=== PATIENT | female | born 1945 | race Caucasian/White ===

== ENCOUNTER 2017-10-21 15:46 | Inpatient (IN) | payer MEDICARE, OTHER ==
[2017-10-21 16:17] LABS: % BASOPHILS 0.9 % (0.0-2.0); % EOSINOPHILS 1.1 % (0.0-5.0); % LYMPHOCYTES 18.6 % (20.0-50.0); % MONOCYTES 6.3 % (2.0-10.0); % NEUTROPHILS 73.1 % (40.0-80.0); BASOPHILE ABSOLUTE 0.1 Th/cumm (0-0.2); EOSINOPHILE ABSOLUTE 0.1 Th/cmm (0.1-0.4); HEMATOCRIT 40.5 % (41.0-60); HEMOGLOBIN 13.2 gm/dL (12-16); LYMPHOCYTE ABSOLUTE 1.6 Th/cmm (1.5-3.0); MEAN CELL VOLUME 89.5 fl (81-100); MEAN CORPUSCULAR HEMOGLOBIN 29.2 pg (27.0-31.0); MEAN CORPUSCULAR HGB CONC 32.6 pg (28.0-36.0); MEAN PLATELET VOLUME 9.2 fl; MONOCYTE ABSOLUTE 0.5 Th/cmm (0.3-1.0); NEUTROPHILE ABSOLUTE 6.1 Th/cmm (1.8-8.0); PLATELET COUNT 297 Th/cmm (150-400); RED BLOOD COUNT 4.52 Mil/cmm (3.80-5.20); WHITE BLOOD COUNT 8.4 Th/cmm (4.8-10.8)
[2017-10-21 16:51] LABS: ACETAMINOPHEN < 10.0 ug/mL (10.0-30.0); ALB/GLOB RATIO 1.2 (1.0-1.8); ALBUMIN 3.8 gm/dL (3.7-5.3); ALKALINE PHOSPHATASE 80 U/L (34-104); BILIRUBIN,TOTAL 0.2 mg/dL (0.3-1.0); BUN - UREA NITROGEN 14 mg/dL (7-25); CALCIUM SERUM 9.6 mg/dL (8.6-10.3); CARBON DIOXIDE 31.4 mEq/L (21.0-31.0); CHLORIDE 98 mEq/L (98-107); CHOLESTEROL 225 mg/dL (<200); CREATININE - SERUM 0.7 mg/dL (0.6-1.2); GLUCOSE 90 mg/dL (70-105); HDL -HIGH DENSITY LIPOPROTEIN 49 mg/dL (23-92); POTASSIUM SERUM 4.4 mEq/L (3.5-5.1); SGOT 11 U/L (13-39); SGPT/ALT < 3 U/L (7-52); SODIUM SERUM 136 mEq/L (136-145); TOTAL PROTEIN,SERUM 6.9 gm/dL (6.0-8.3); TRIGLYCERIDES 312 mg/dL (<150)
[2017-10-21 17:06] LABS: SALICYLATES (ASPIRIN) < 25.0 mg/L (30.0-100.0)
--- NOTE | 2017-10-21 17:24 | ED Physician Chart ---
ED Chief Complaint/HPI - Patient Information Date Seen:: 10/21/17 Time Seen:: 15:45 Chief Complaint:: Agitation History of Present Illness:: onset x 2 days of agitation and hostile behavior; no report of trauma, H/As, S/T , neck pain, C/P, SOB, Abd. Pain, A/N/V/D/C, fever, chills, SIs, or urinary s/s Allergies:: Allergies Allergy/AdvReac Type Severity Reaction Status Date / Time darnell Allergy Verified 10/21/17 16:06 olanzapine [From Zyprexa] Allergy Verified 10/21/17 16:06 orange Allergy Verified 10/21/17 16:06 Sulfa (Sulfonamide Allergy Verified 10/21/17 16:06 Antibiotics) thioridazine [From Mellaril] Allergy Verified 10/21/17 16:06 Vitals:: Vital Signs - 8 hr 10/21/17 15:46 Temp 97.8 F HR 77 RR 16 BP 138/73 O2 Sat % 94 Historian:: Patient Review:: Nurse's Note Reviewed ED Review of Systems - Review of Systems General/Constitutional: No fever, No chills, No weight loss, No weakness, No diaphoresis, No edema, No loss of appetite Skin: No skin lesions, No rash, No bruising Head: No headache, No light-headedness Eyes: No loss of vision, No pain, No diplopia ENT: No earache, No nasal drainage, No sore throat, No tinnitus Neck: No neck pain, No swelling, No thyromegaly, No stiffness, No mass noted Cardio Vascular: No chest pain, No palpitations, No PND, No orthopnea, No edema Pulmonary: No SOB, No cough, No sputum, No wheezing GI: No nausea, No vomiting, No diarrhea, No pain, No melena, No hematochezia, No constipation, No hematemesis G/U: No dysuria, No frequency, No hematuria, No nacturia Billet Worker: No vaginal discharge, No abnormal vaginal bleed, No contraction Musculoskeletal: No bone or joint pain, No back pain, No muscle pain Endocrine: No polyuria, No polydipsia Psychiatric: No prior psych history, No depression, No anxiety, No suicidal ideation, No homicidal ideation, No auditory hallucination, No visual hallucination Hematopoietic: No bruising, No lymphadenopathy Allergic/Immuno: No urticaria, No angioedema Neurological: No syncope, No focal symptoms, No weakness, No paresthesia, No headache, No seizure, No dizziness, No confusion, No vertigo ED Past Medical History - Past Medical History Obtainable: Yes Past Medical History: HTN Family History: HTN Social History: Non Smoker, No Alcohol, No Drug Use, Single, Care Facility Surgical History: None Psychiatricy History: Schizophrenia, Bipolar Medication: Reviewed ED Physical Exam - Physical Examination General/Constitutional: Awake, Well-developed, well-nourished, Alert, No distress, GCS 15, Non-toxic appearing, Ambulatory Head: Atraumatic Eyes: Lids, conjuctiva normal, PERRL, EOMI Skin: Nl inspection, No rash, No skin lesions, No ecchymosis, Well hydrated, No lymphadenopathy ENMT: External ears, nose nl, TM canals nl, Nasal exam nl, Lips, teeth, gums nl , Oropharynx nl, Tonsils nl Neck: Nontender, Full ROM w/o pain, No JVD, No nuchal rigidity, No bruit, No mass, No stridor Respiratory: Nl effort/Exclusion, Clear to Auscultation, No Wheeze/Rhonchi/Rales Cardio Vascular: RRR, No murmur, gallop, rubs, NL S1 S2, Carotid/Femoral/Distal pulses equal bilaterally GI: No tenderness/rebounding/guarding, No organomegaly, No hernia, Normal BS's, Nondistended, No mass/bruits, No McBurney tenderness : No CVA tenderness Extremities: No tenderness or effusion, Full ROM, normal strength in all extremities, No edema, Normal digits & nails Neuro/Psych: Alert/oriented, DTR's symmetric, Normal sensory exam, Normal motor strength, Judgement/insight normal, Mood normal, Normal gait, No focal deficits Other Neuro/Psych comments:: + Psychomotor Agitation; no SIs; Mood/Affect; Stable Misc: Normal back, No paraspinal tenderness ED Labs/Radiology/EKG Results - Lab Results Results: Laboratory Tests 10/21/17 10/21/17 16:05 16:05 WBC 8.4 RBC 4.52 Hgb 13.2 Hct 40.5 L MCV 89.5 MCH 29.2 MCHC Differential 32.6 RDW 13.0 Plt Count 297 MPV 9.2 Neutrophils % 73.1 Lymphocytes % 18.6 L Monocytes % 6.3 Eosinophils % 1.1 Basophils % 0.9 Sodium 136 Potassium 4.4 Chloride 98 Carbon Dioxide 31.4 H Anion Gap 11.0 BUN 14 Creatinine 0.7 Est GFR ( Amer) TNP Est GFR (Non-Af Amer) TNP BUN/Creatinine Ratio 20.0 Glucose 90 Calcium 9.6 Total Bilirubin 0.2 L AST 11 L ALT < 3 L Alkaline Phosphatase 80 Total Protein 6.9 Albumin 3.8 Globulin 3.1 Albumin/Globulin Ratio 1.2 Triglycerides 312 H Cholesterol 225 H LDL Cholesterol Direct 142 HDL Cholesterol 49 Salicylates < 25.0 L Acetaminophen < 10.0 L Ethyl Alcohol < 10 Comments:: unremarkable - EKG Interpretations EKG Time:: 16:19 Rate & Rhythm: 73; NSR Comments:: non-specific st-t changes ED Septic Shock - . Is Septic Shock (SBP<90, OR Lactate>4 mmol\L) present?: No - <6hrs of presentation: Vital Signs: Vital Signs - 8 hr 10/21/ 15:46 Temp 97.8 F HR 77 RR 16 BP 138/73 O2 Sat % 94 ED Reassessment (Disposition) - Reassessment Reassessment Condition:: Improved - Diagnosis Diagnosis:: Agitation; Psychosis; Bipolar Disorder; Medical Clearance - Aftercare/Follow up Instructions Aftercare/Follow-Up Instructions:: Counseled pt regarding lab results/diagnosis & need follow up, Counseled pt & family regarding lab results/diagnosis & need follow up - Patient Disposition Discharge/Transfer:: Acute Care w/in this hosp Admitted to:: [facility] Condition at Disposition:: Stable, Improved ED Discharge Plan - Patient Disposition Instructions: Psychosis
[2017-10-21] MEDS ORDERED: Magnesium Hydroxide (MOM) 30 mL UDC PO PRN (18:02)
[2017-10-21 20:11] VITALS: BP 130/71
[2017-10-21] MEDS: Ferrous Sulfate 325 MG TAB PO SCH (21:04)
[2017-10-21] MEDS ORDERED: Magnesium Hydroxide (MOM) 30 mL UDC PO SCH (21:45)
[2017-10-22] MEDS ORDERED: Aspirin 81mg Chewable Tab PO SCH (09:00)
[2017-10-22] MEDS ORDERED: Pantoprazole 40 mg EC Tab PO SCH (09:00)
[2017-10-22] MEDS: Levothyroxine 0.075 Mg Tab PO SCH (09:00)
[2017-10-22] MEDS ORDERED: Levothyroxine 0.025 Mg Tab PO SCH (09:00)
[2017-10-22] MEDS ORDERED: Multivitamin w/ Minerals Tab PO SCH (09:00)
[2017-10-22] MEDS ORDERED: Oxybutynin Chloride 5 mg ER Tab PO SCH (09:00)
[2017-10-22] MEDS ORDERED: Ferrous Sulfate 325 MG TAB PO SCH (09:00)
[2017-10-22] MEDS: Ferrous Sulfate 325 MG TAB PO SCH ×3 (09:04→20:32)
[2017-10-22] MEDS: Multivitamin Tab PO SCH (09:05)
[2017-10-22] MEDS: Oxybutynin Chloride 5 mg ER Tab PO SCH (09:05)
[2017-10-22] MEDS: Aspirin 81mg Chewable Tab PO SCH (09:05)
[2017-10-22] MEDS: Pantoprazole 40 mg EC Tab PO SCH (09:05)
[2017-10-22 18:58] LABS: A1C % 6.3 % (4.0-6.0)
--- NOTE | 2017-10-23 02:37 | Psychosocial Evaluation ---
DATE OF SERVICE: 10/22/2017 IDENTIFYING DATA: The patient is a 72-year-old woman admitted here from [facility]. JUSTIFICATION OF HOSPITALIZATION: The patient is admitted here on a voluntary basis in view of her acute psychosis and agitation. CHIEF COMPLAINT: "I don't know, I want to go to hospice." HISTORY OF PRESENT ILLNESS: This is the first psychiatric hospitalization to the [facility] for this patient who is reported to have been agitated and verbally abusive and has been very disruptive. The patient could not be contained at a lower level of care and hence the patient has been transferred over here. I tried to interview the patient. The patient has been screaming and yelling and showing me the details about the hospice that she wanted to go there. Prior to the hospitalization, the patient is reported to have been having difficult time to cope with the stress. Review of the chart indicated that the patient has been on Clozaril and the patient is also reported to be on Depakote. The patient's compliance with the medication is noted to be questionable. The patient at this time has been going on a tangent and is not able to provide much of information. PAST PSYCHIATRIC HISTORY: Details are not known. MEDICAL HISTORY: Physical examination is requested and done by Dr. White and patient has reported to have COPD, osteoarthritis, anemia, Parkinson's disease, essential hypertension, hypothyroidism and type 2 diabetes mellitus. ALLERGIES: No allergies to any medications are reported at this time. SUBSTANCE ABUSE HISTORY: None. PHYSICAL OR SEXUAL ABUSE HISTORY: None. LEGAL PROBLEMS: None at this time. STRENGTH AND ASSETS: The patient is motivated. MENTAL STATUS EXAMINATION: The patient is a 72-year-old woman looking her stated age, superficially cooperative. Eye contact is poor. Mood is noted to be irritable. Affect is constricted. Insight and judgment at this time are noted to be impaired. Impulse control is noted to be poor. Coping skills are noted to be poor. The patient has not been able to contract for safety at this time. The patient is getting agitated. The patient at this time is not willing to contract for safety and has been going on a tangent and showing me the information on the hospice and is stating that she wants to go there. DIAGNOSTIC IMPRESSION: AXIS I: Schizophrenia, chronic paranoid type. AXIS II: None. AXIS III: As per Dr. Christopher. IMMEDIATE TREATMENT PLAN: The patient is going to be closely monitored, provided with supportive psychotherapy. The patient is going to be evaluated and continued with the current psychotropic medications. ESTIMATED LENGTH OF STAY: Three to five days. DISCHARGE CRITERIA: When she no longer is a threat to self or others and be able to cope up with the stress. [facility]# [id number]
[2017-10-23] MEDS: Aspirin 81mg Chewable Tab PO SCH (08:35)
[2017-10-23] MEDS: Ferrous Sulfate 325 MG TAB PO SCH ×3 (08:35→20:40)
[2017-10-23] MEDS: Levothyroxine 0.075 Mg Tab PO SCH (08:36)
[2017-10-23] MEDS: Oxybutynin Chloride 5 mg ER Tab PO SCH (11:15)
[2017-10-23] MEDS: Multivitamin Tab PO SCH (11:15)
[2017-10-23] MEDS: Pantoprazole 40 mg EC Tab PO SCH (11:15)
--- NOTE | 2017-10-23 18:29 | General Progress Note ---
Objective - Results Result Diagrams: 10/21/17 16:05 10/21/17 16:05 Recent Labs: Laboratory Last Values WBC 8.4 Th/cmm (4.8-10.8) 10/21/17 16:05 RBC 4.52 Mil/cmm (3.80-5.20) 10/21/17 16:05 Hgb 13.2 gm/dL (12-16) 10/21/17 16:05 Hct 40.5 % (41.0-60) L 10/21/17 16:05 MCV 89.5 fl (81-100) 10/21/17 16:05 MCH 29.2 pg (27.0-31.0) 10/21/17 16:05 MCHC Differential 32.6 pg (28.0-36.0) 10/21/17 16:05 RDW 13.0 % (11.5-20.0) 10/21/17 16:05 Plt Count 297 Th/cmm (150-400) 10/21/17 16:05 MPV 9.2 fl 10/21/17 16:05 Neutrophils % 73.1 % (40.0-80.0) 10/21/17 16:05 Lymphocytes % 18.6 % (20.0-50.0) L 10/21/17 16:05 Monocytes % 6.3 % (2.0-10.0) 10/21/17 16:05 Eosinophils % 1.1 % (0.0-5.0) 10/21/17 16:05 Basophils % 0.9 % (0.0-2.0) 10/21/17 16:05 Sodium 136 mEq/L (136-145) 10/21/17 16:05 Potassium 4.4 mEq/L (3.5-5.1) 10/21/17 16:05 Chloride 98 mEq/L (98-107) 10/21/17 16:05 Carbon Dioxide 31.4 mEq/L (21.0-31.0) H 10/21/17 16:05 Anion Gap 11.0 (7.0-16.0) 10/21/17 16:05 BUN 14 mg/dL (7-25) 10/21/17 16:05 Creatinine 0.7 mg/dL (0.6-1.2) 10/21/17 16:05 Est GFR ( Amer) TNP 10/21/17 16:05 Est GFR (Non-Af Amer) TNP 10/21/17 16:05 BUN/Creatinine Ratio 20.0 10/21/17 16:05 Glucose 90 mg/dL (70-105) 10/21/17 16:05 Hemoglobin A1c % 6.3 % (4.0-6.0) H 10/21/17 16:05 Calcium 9.6 mg/dL (8.6-10.3) 10/21/17 16:05 Total Bilirubin 0.2 mg/dL (0.3-1.0) L 10/21/17 16:05 AST 11 U/L (13-39) L 10/21/17 16:05 ALT < 3 U/L (7-52) L 10/21/17 16:05 Alkaline Phosphatase 80 U/L (34-104) 10/21/17 16:05 Total Protein 6.9 gm/dL (6.0-8.3) 10/21/17 16:05 Albumin 3.8 gm/dL (3.7-5.3) 10/21/17 16:05 Globulin 3.1 gm/dL 10/21/17 16:05 Albumin/Globulin Ratio 1.2 (1.0-1.8) 10/21/17 16:05 Triglycerides 312 mg/dL (<150) H 10/21/17 16:05 Cholesterol 225 mg/dL (<200) H 10/21/17 16:05 LDL Cholesterol Direct 142 mg/dL (75-193) 10/21/17 16:05 HDL Cholesterol 49 mg/dL (23-92) 10/21/17 16:05 TSH 1.54 uIU/ml (0.34-5.60) 10/21/17 16:05 Salicylates < 25.0 mg/L (30.0-100.0) L 10/21/17 16:05 Acetaminophen < 10.0 ug/mL (10.0-30.0) L 10/21/17 16:05 Ethyl Alcohol < 10 mg/dL (0-10) 10/21/17 16:05 RPR NONREACTIVE (NONREACTIVE) 10/21/17 16:05 - Physical Exam Vitals and I&O: Vital Signs Temp 98.2 F 10/23/17 07:20 Pulse 82 10/23/17 07:20 Resp 20 10/23/17 07:20 BP 129/76 10/23/17 07:20 Pulse Ox 95 10/23/17 07:20 Intake & Output 10/22/17 10/23/17 10/23/17 18:59 06:59 18:59 Intake Total 480 240 Balance 480 240 Intake: Oral 480 240 Other: # Voids 2 2 Active Medications: Current Medications Acetaminophen (Tylenol) 650 mg PO Q4HR PRN PRN Reason: mild pain Stop: 12/20/17 21:37 Ascorbic Acid (Vitamin C) 500 mg PO DAILY LESLEE Stop: 12/21/17 08:59 Last Admin: 10/23/17 08:36 Dose: 500 mg Aspirin (Aspirin Chewable) 81 mg PO DAILY LESLEE Stop: 12/21/17 08:59 Last Admin: 10/23/17 08:35 Dose: 81 mg Carbidopa/Levodopa (Sinemet 25mg-100 Mg) 1 tab PO DAILY LESLEE Stop: 12/21/17 08:59 Last Admin: 10/23/17 11:16 Dose: 1 tab Clozapine (Clozaril) 100 mg PO HS LESLEE PRN Reason: Protocol Stop: 12/20/17 20:59 Last Admin: 10/22/17 20:32 Dose: 100 mg Clozapine (Clozaril) 25 mg PO DAILY LESLEE PRN Reason: Protocol Stop: 12/21/17 08:59 Last Admin: 10/23/17 08:34 Dose: 25 mg Divalproex Sodium (Depakote Dr) 500 mg PO DAILY LESLEE PRN Reason: Protocol Stop: 12/21/17 08:59 Last Admin: 10/23/17 11:15 Dose: 500 mg Docusate Sodium (Colace) 100 mg PO BID LESLEE Stop: 12/21/17 08:59 Last Admin: 10/23/17 17:13 Dose: 100 mg Ferrous Sulfate (Iron) 325 mg PO TID LESLEE Stop: 12/20/17 20:59 Last Admin: 10/23/17 13:13 Dose: 325 mg Levothyroxine Sodium (Synthroid) 0.15 mg PO QDAC LESLEE Stop: 12/21/17 07:29 Last Admin: 10/23/17 08:36 Dose: 0.15 mg Lorazepam (Ativan) 0.5 mg PO Q4HR PRN; Protocol PRN Reason: Agitation Stop: 11/20/17 19:49 Magnesium Hydroxide (Milk Of Magnesia) 30 ml PO HS PRN PRN Reason: Constipation Stop: 12/20/17 18:01 Magnesium Hydroxide (Milk Of Magnesia) 30 ml PO Q72H LESLEE Stop: 12/20/17 21:44 Multivitamins/Vitamin C (Theragran) 1 tab PO DAILY LESLEE Stop: 12/21/17 08:59 Last Admin: 10/23/17 11:15 Dose: 1 tab Oxybutynin Chloride (Ditropan Xl) 5 mg PO DAILY LESLEE Stop: 12/21/17 08:59 Last Admin: 10/23/17 11:15 Dose: 5 mg Pantoprazole Sodium (Protonix) 40 mg PO DAILY LESLEE Stop: 12/21/17 08:59 Last Admin: 10/23/17 11:15 Dose: 40 mg Tramadol HCl (Ultram) 50 mg PO Q6HR PRN PRN Reason: PAIN Stop: 12/20/17 18:09 Trazodone HCl (Desyrel) 50 mg PO HS LESLEE PRN Reason: Protocol Stop: 12/20/17 20:59 Last Admin: 10/22/17 20:32 Dose: 50 mg Zolpidem Tartrate (Ambien) 5 mg PO HS PRN PRN Reason: Insomnia Stop: 12/20/17 19:49 - Procedures Procedures: Procedures Procedure Code Date INDIVID PSYCHOTHERAP NEC 94.39 06/18/04 OTHER GROUP THERAPY 94.44 06/18/04 RECREATIONAL THERAPY 93.81 06/18/04
--- NOTE | 2017-10-24 00:43 | Progress Notes ---
DATE: 10/23/2017 SUBJECTIVE: Staff was spoken to. The patient is interviewed. Mood is noted to be irritable. Affect is constricted. The patient is going on a tangent and has no insight into her illness. Insight and judgment are noted to be very much impaired. Impulse control seems to be poor. The patient is currently on Clozaril 100 mg at bedtime and 25 mg in the morning and is also getting the valproic acid 500 mg in the morning. The patient with these medications is being closely monitored. The patient's mood swings are still a problem and she is not able to contract for safety. ASSESSMENT: The patient is still psychotic and impulsive. PLAN: To continue the patient with the supportive therapy. I encouraged the patient to verbalize the concerns rather than to act out. [facility]# [id number]
[2017-10-24] MEDS: Levothyroxine 0.075 Mg Tab PO SCH (06:31)
[2017-10-24] MEDS: Multivitamin Tab PO SCH (09:47)
[2017-10-24] MEDS: Oxybutynin Chloride 5 mg ER Tab PO SCH (09:47)
[2017-10-24] MEDS: Pantoprazole 40 mg EC Tab PO SCH (09:47)
[2017-10-24] MEDS: Ferrous Sulfate 325 MG TAB PO SCH ×3 (09:47→20:40)
[2017-10-24] MEDS: Aspirin 81mg Chewable Tab PO SCH (09:48)
--- NOTE | 2017-10-24 18:50 | Progress Notes ---
DATE: 10/24/2017 SUBJECTIVE: Staff was spoken to. The patient is interviewed. Mood is noted to be irritable. Affect is constricted. Insight and judgment are to be still impaired. Impulse control is noted to be limited. Continues to have some mood swings. Paranoid delusions are a major concern. No side effects to the medications are noted. The patient is going on a tangent. Insight and judgment are very much impaired at this time. Impulse control is also noted to be very poor. ASSESSMENT: The patient is still psychotic. PLAN: To increase the dose on the Clozaril to 50 mg in the morning and follow the patient with the supportive therapy. The patient is going to be encouraged to verbalize the concerns rather than to act out. [facility]# [id number]
--- NOTE | 2017-10-24 22:30 | Consultation ---
DATE OF CONSULTATION: 10/23/2017 TYPE OF CONSULTATION: Psychology. REFERRING PHYSICIAN: Dr. Sarah Cabezas. HISTORY OF PRESENT ILLNESS: The patient is a 72-year-old female. The patient is a resident of [facility]. The following is by record review as well as by the patient's self report. Upon record review, the patient is being admitted due to acute psychosis and agitated behavior. The staff at the patient's facility reports that she has been verbally abusive and very disruptive as well as being unable to be contained at a lower level of care. Upon interview, the patient is yelling. When the patient actually was able to respond to de-escalation, the patient stated something about being on hospice or needing to be put on hospice. The primary care physician here is informed. The patient is not making much sense and is rambling. The patient did not answer questions about suicidal ideation, plan or intention. PAST MEDICAL HISTORY: Please see history and physical by Dr. White. PAST PSYCHIATRIC HISTORY: Details and information are unavailable at the time of this clinical interview. CURRENT MEDICATIONS: Please see admission reconciliation. ALLERGIES: No known drug allergies. SUBSTANCE ABUSE HISTORY: None. PSYCHOSOCIAL HISTORY: The patient did not answer questions about occupational or educational history or tenriism affiliation. The patient did not answer questions about physical or sexual abuse history or legal issues. She did not answer questions about family history or relationships or support. MENTAL STATUS EXAMINATION: The patient appears to be her stated age. The patient's attitude is guarded, but intermittently cooperative. Eye contact is poor. Speech is loud with verbal outbursts i.e., yelling. Mood is irritable and angry. Affect is constricted. Thought process shows to be confused with marked tangentiality. The patient's concentration is poor. She was unable to sustain focus and attention or be cognitively redirected. The patient did not answer questions about suicidal ideation, plan, or intention. The patient nodded her head no to experiencing any auditory or visual hallucinations. There seems to be evidence of paranoid ideation. Impilse control is poor. The patient 's behavior has been difficult to redirect or deescalate on the unit. The patient continued to perseverate on being put into hospice. The patient's sensorium is alert and oriented to self only. The patient did not participate in the memory assessment. Immediate, short-term and long-term memory appeared to be impaired. The patient did not participate in the interpretation of proverbs. Insight is impaired. Judgment is impaired. DIAGNOSTIC IMPRESSION: AXIS I: History of schizophrenia, chronic paranoid type. AXIS II: Deferred. AXIS III: Per Dr. White. TREATMENT PLAN: The patient has been seen by Dr. Cabezas for the psychiatric evaluation and management of the patient's psychotropic medications. We will provide supportive psychotherapy to include a simple deescalation skill and encouraged the patient to verbalize her concerns versus yelling and acting out. We will provide coping strategies for phase of life issues as well as for severe mental illness. We will provide reality orientation, reality differentiation, and reality integration. We will continue to provide motivational enhancement for the patient to become compliant and stay compliant with all aspects of her care and treatment plan during her hospital stay. We will encourage the patient to verbally contract for safety. The primary care physician has been informed regarding the patient's request to be evaluated for hospice. Thank you, Dr. Cabezas for this consult and the opportunity to participate with you in this patient's care. [facility]OB# [id number] DURGA
--- NOTE | 2017-10-25 06:32 | History & Physical ---
ADMIT DATE: 10/24/2017 CHIEF COMPLAINT: Agitation. HISTORY OF PRESENT ILLNESS: This is a 72-year-old female who was admitted from senior care facility, transferred to the Emergency Room due to agitation and aggressive behavior for 2 days. REVIEW OF SYSTEMS: GENERAL: Denies fever. Denies weight loss. Denies weakness. HEENT: Head: Denies headache. Denies dizziness. Eyes: Denies eye pain. Denies blurring of vision. NECK: Denies neck pain. Denies nuchal rigidity. CHEST: Denies palpitation. Denies chest pain. PULMONARY: Denies shortness of breath. Denies coughing. GASTROINTESTINAL: Denies abdominal pain. Denies constipation. Denies diarrhea. MUSCULOSKELETAL: Denies joint pain. Denies muscle pain. SOCIAL HISTORY: The patient lives in a senior care facility prior to hospitalization. FAMILY HISTORY: Unremarkable. PAST SURGICAL HISTORY: Unremarkable. PSYCHIATRIC HISTORY: Includes schizophrenia. PAST MEDICAL HISTORY: Includes Parkinson, iron deficiency anemia, hypothyroidism, gastroesophageal reflux disease, osteoarthritis. PHYSICAL EXAMINATION: VITAL SIGNS: Temperature 98.2, heart rate of 82, blood pressure 129/76, respirations 20, 95% on room air. HEENT: Head is atraumatic, normocephalic. Eyes: Bilateral conjunctivae are clear. Bilateral pupils are equally round and reactive. NECK: Supple. No JVD. CARDIOVASCULAR: S1 and S2 without murmur. PULMONARY: Clear to auscultation. GASTROINTESTINAL: Soft and nontender without guarding. Positive bowel sounds. MUSCULOSKELETAL: No clubbing. No cyanosis noted. ASSESSMENT: 1. Schizophrenia. 2. Osteoarthritis. 3. Iron deficiency anemia. 4. Hypothyroidism. 5. Gastroesophageal reflux disease. PLAN: We will admit the patient to senior mental health unit. We will follow up with the psychiatrist to monitor the patient's condition and behavior. We will do medication reconciliation accordingly. Treatment plans were discussed with the patient's nurse. Treatment plans were discussed with Dr. White. JOB# [id number]
[2017-10-25] MEDS: Levothyroxine 0.075 Mg Tab PO SCH (06:33)
[2017-10-25] MEDS: Multivitamin Tab PO SCH (09:13)
[2017-10-25] MEDS: Pantoprazole 40 mg EC Tab PO SCH (09:14)
[2017-10-25] MEDS: Oxybutynin Chloride 5 mg ER Tab PO SCH (09:14)
[2017-10-25] MEDS: Ferrous Sulfate 325 MG TAB PO SCH ×3 (09:17→22:16)
[2017-10-25] MEDS: Aspirin 81mg Chewable Tab PO SCH (09:19)
--- NOTE | 2017-10-25 22:10 | Progress Notes ---
DATE: 10/25/2017 PSYCHIATRIC PROGRESS NOTE SUBJECTIVE: Staff was spoken to. The patient is interviewed. Mood is noted to be irritable. Affect is constricted. The patient is going on a tangent. Coping skills are noted to be still poor. Insight and judgment are also noted to be very much impaired. No side effects to the medications are noted. The patient has been isolative and withdrawn today compared to yesterday. The patient is currently on Clozaril for her psychosis and the patient has been able to tolerate. PLAN: To gradually increase the dose on the Clozaril and I encouraged the patient to verbalize the concerns rather than to act out. JOB# [id number]
[2017-10-26] MEDS: Levothyroxine 0.075 Mg Tab PO SCH (06:49)
[2017-10-26] MEDS: Oxybutynin Chloride 5 mg ER Tab PO SCH (09:39)
[2017-10-26] MEDS: Ferrous Sulfate 325 MG TAB PO SCH ×3 (09:39→21:24)
[2017-10-26] MEDS: Aspirin 81mg Chewable Tab PO SCH (09:39)
[2017-10-26] MEDS: Multivitamin Tab PO SCH (09:39)
[2017-10-26] MEDS: Pantoprazole 40 mg EC Tab PO SCH (09:39)
[2017-10-26] MEDS ORDERED: Magnesium Hydroxide (MOM) 30 mL UDC PO SCH (21:45)
--- NOTE | 2017-10-27 05:48 | Progress Notes ---
DATE: 10/26/2017 SUBJECTIVE: Staff was spoken to. The patient is interviewed. Mood is noted to be irritable. Affect is constricted. Insight and judgment noted to be still impaired. Impulse control is noted to be poor. Coping skills are noted to be poor. The patient has been having difficult time to cope with the stress. The patient is currently on Clozaril and Depakote and has been able to tolerate. ASSESSMENT: The patient is still psychotic. PLAN: To continue the patient with supportive therapy and continue the Clozaril and follow the patient. JOB# [id number]
[2017-10-27] MEDS: Levothyroxine 0.075 Mg Tab PO SCH (06:42)
[2017-10-27] MEDS: Oxybutynin Chloride 5 mg ER Tab PO SCH (08:26)
[2017-10-27] MEDS: Aspirin 81mg Chewable Tab PO SCH (08:26)
[2017-10-27] MEDS: Pantoprazole 40 mg EC Tab PO SCH (08:26)
[2017-10-27] MEDS: Multivitamin Tab PO SCH (08:26)
[2017-10-27] MEDS: Ferrous Sulfate 325 MG TAB PO SCH ×3 (08:26→20:46)
--- NOTE | 2017-10-27 18:41 | Progress Notes ---
DATE: 10/27/2017 SUBJECTIVE: Staff was spoken to. The patient is interviewed. Mood is noted to be irritable. Affect is constricted. Insight and judgment are noted to be still impaired. The patient has been having paranoid delusions, but denies any command hallucinations. The patient has been isolative and withdrawn today. No side effects to the medications are noted. The patient is currently on the Clozaril and trazodone and is able to tolerate the medications and the patient is also on the valproic acid. ASSESSMENT: The patient is stabilizing. PLAN: To continue the patient with the supportive therapy and followup. JOB# [id number]
[2017-10-28] MEDS: Levothyroxine 0.075 Mg Tab PO SCH (06:34)
[2017-10-28 07:07] LABS: % BASOPHILS 0.6 % (0.0-2.0); % LYMPHOCYTES 21.3 % (20.0-50.0); % MONOCYTES 6.7 % (2.0-10.0); % NEUTROPHILS 69.4 % (40.0-80.0); EOSINOPHILE ABSOLUTE 0.2 Th/cmm (0.1-0.4); HEMATOCRIT 37.6 % (41.0-60); HEMOGLOBIN 12.6 gm/dL (12-16); LYMPHOCYTE ABSOLUTE 1.7 Th/cmm (1.5-3.0); MEAN CELL VOLUME 89.1 fl (81-100); MEAN CORPUSCULAR HEMOGLOBIN 29.8 pg (27.0-31.0); MEAN CORPUSCULAR HGB CONC 33.5 pg (28.0-36.0); MEAN PLATELET VOLUME 8.8 fl; MONOCYTE ABSOLUTE 0.5 Th/cmm (0.3-1.0); NEUTROPHILE ABSOLUTE 5.4 Th/cmm (1.8-8.0); PLATELET COUNT 266 Th/cmm (150-400); RED BLOOD COUNT 4.23 Mil/cmm (3.80-5.20); WHITE BLOOD COUNT 7.8 Th/cmm (4.8-10.8)
[2017-10-28] MEDS: Multivitamin Tab PO SCH (09:19)
[2017-10-28] MEDS: Ferrous Sulfate 325 MG TAB PO SCH ×3 (09:19→20:53)
[2017-10-28] MEDS: Pantoprazole 40 mg EC Tab PO SCH (09:19)
[2017-10-28] MEDS: Oxybutynin Chloride 5 mg ER Tab PO SCH (09:19)
[2017-10-28] MEDS: Aspirin 81mg Chewable Tab PO SCH (09:19)
--- NOTE | 2017-10-29 01:09 | Progress Notes ---
DATE: 10/28/2017 SUBJECTIVE: Staff was spoken to. The patient is interviewed. Mood is noted to be less irritable. The patient has paranoia, but denies any command hallucinations. Insight and judgment at this time are noted to be improving. Impulse control seems to be fair. No side effects to the medications are noted. The patient has paranoia, but no command hallucinations are reported today. ASSESSMENT: The patient is stabilizing. PLAN: To continue the patient with supportive therapy and encourage the patient to verbalize the concerns rather than to act out. JOB# [id number]
[2017-10-29] MEDS: Levothyroxine 0.075 Mg Tab PO SCH (06:40)
[2017-10-29] MEDS: Pantoprazole 40 mg EC Tab PO SCH (09:07)
[2017-10-29] MEDS: Multivitamin Tab PO SCH (09:07)
[2017-10-29] MEDS: Aspirin 81mg Chewable Tab PO SCH (09:08)
[2017-10-29] MEDS: Oxybutynin Chloride 5 mg ER Tab PO SCH (09:08)
[2017-10-29] MEDS: Ferrous Sulfate 325 MG TAB PO SCH (09:08)
--- NOTE | 2017-10-30 03:35 | Progress Notes ---
DATE: 10/29/2017 SUBJECTIVE: Staff was spoken to. The patient is interviewed. Mood is noted to be anxious. Affect is appropriate, not suicidal or homicidal. The patient has paranoia, but denies any command hallucinations. Insight and judgment at this time are noted to be improving. Impulse control seems to be fair. No side effects to the medications are noted. ASSESSMENT: The patient has been stabilizing. PLAN: To discharge the patient today for followup on outpatient basis. JOB# [id number]
--- NOTE | 2017-10-30 22:30 | Discharge Summary ---
DATE OF DISCHARGE: 10/29/2017 IDENTIFYING DATA: The patient is a 72-year-old woman admitted here from [facility]. JUSTIFICATION OF HOSPITALIZATION: The patient admitted on a voluntary basis in view of her acute psychosis and agitation. CHIEF COMPLAINT: "I don't know. I want to go to hospice." DIAGNOSES AT THE TIME OF ADMISSION: AXIS I: Schizophrenia, chronic paranoid type. AXIS II: None. AXIS III: As per Dr. White. HISTORY OF PRESENT ILLNESS: Please refer the 10/22/2017 dictation done by me. Physical examination at the time of this admission done by Dr. White and is noted significant for hypothyroidism, osteoarthritis and gastroesophageal reflux. Lab studies done at the hospitalization have been reviewed by Dr. White and no major intervention was needed. HOSPITAL COURSE AND RESPONSE TO TREATMENT: The patient has been closely monitored on the inpatient unit, provided with supportive psychotherapy. The patient has been continued on the divalproex acid, which was given at 500 mg twice a day and Clozaril was given and Clozaril was gradually increased to 100 mg twice a day and the patient has been closely monitored and the patient was able to tolerate the medications. No side effects to the medications were noted and the patient has been able to verbalize the concerns rather than to act out. The patient was finally discharged on 10/29/2017 with recommendation that she is going to be seeking treatment on an outpatient basis. MENTAL STATUS EXAMINATION: At the time of discharge, the patient's mood is noted to be anxious. Affect is appropriate. Not suicidal or homicidal. Insight and judgment are improving. Impulse control seems to be fair. Coping skills are also noted fair. The patient has been able to verbalize the concerns rather than to act out at the time of the discharge. CONDITION AT THE TIME OF DISCHARGE: Noted to be stable. AFTERCARE PLAN: The patient is discharged to [facility], to be followed up on an outpatient basis. PROGNOSIS: At the time of discharge is noted to be fair with the treatment. DIAGNOSES AT THE TIME OF DISCHARGE: AXIS I: Schizophrenia, chronic paranoid type. AXIS II: None. AXIS III: None. JOB# [id number]
== END 2017-10-29 15:30 | DRG 885 ==
LOC: ER 15:46 → GERO2 17:20
PROVIDERS: ADMIT Psychiatry & Neurology Psychiatry; ATTEND Psychiatry & Neurology Psychiatry
DX: F20.0 Paranoid schizophrenia (principal); J44.9 Chronic obstructive pulmonary disease, unspecified; M19.90 Unspecified osteoarthritis, unspecified site; G20 Parkinson's disease; I10 Essential (primary) hypertension; E03.9 Hypothyroidism, unspecified; E11.9 Type 2 diabetes mellitus without complications; Z88.2 Allergy status to sulfonamides; Z88.8 Allergy status to other drugs, medicaments and biological substances; Z91.018 Allergy to other foods; Z82.49 Family history of ischemic heart disease and other diseases of the circulatory system; F31.9 Bipolar disorder, unspecified; F29 Unspecified psychosis not due to a substance or known physiological condition; K21.9 Gastro-esophageal reflux disease without esophagitis; D50.9 Iron deficiency anemia, unspecified
CPT/HCPCS: 36415-UA; 80053-TC; 80061-TC; 80320-TC; 80329-TC; 83036-90; 84443-TC; 85025-TC; 86592-TC; 93005; Z7610